=== PATIENT | female | born 1985 | race Caucasian/White ===

== ENCOUNTER 2016-05-23 07:32 | Emergency (ER) | payer BC ==
[2016-05-23 08:03] VITALS: BP 109/81
[2016-05-23] MEDS ORDERED: Acetaminophen TAB* 325 MG PO ONE (08:08)
--- NOTE | 2016-05-23 10:14 | UC ---
FLU HPI - HPI Summary HPI Summary: 2 DAYS OF FEVER, BODY ACHES, COUGH AND CHILLS. ABOUT 10 WEEKS . TOOK TYLENOL LAST NIGHT. OB DR. MONTOYA. - History of Current Complaint Chief Complaint: UCRespiratory Stated Complaint: FEVER RESP ISSUE PREG Time Seen by Provider: 05/23/16 08:07 Hx Obtained From: Patient Hx Last Menstrual Period: 10 weeks Onset/Duration: Gradual Onset, Lasting Days, Still Present Severity Currently: Moderate Severity Initially: Moderate Pain Intensity: 0 Pain Scale Used: 0-10 Numeric Associated Signs & Symptoms: Positive: Fever, Myalgia, Cough. Negative: Sore Throat, Headache, Vomiting, Diarrhea - Allergy/Home Medications Allergies/Adverse Reactions: Allergies Allergy/AdvReac Type Severity Reaction Status Date / Time No Known Allergies Allergy Verified 05/23/16 08:03 Home Medications: Home Medications Levothyroxine TAB* [Synthroid TAB*] 50 mcg PO 05/23/16 [History] PMH/Surg Hx/FS Hx/Imm Hx Endocrine History Of: Reports: Thyroid Disease, Hypothyroidism - Surgical History Surgical History: None - Family History Known Family History: Negative: Blood Disorder - Social History Alcohol Use: None Substance Use Type: None Smoking Status (MU): Never Smoked Tobacco Review of Systems Constitutional: Fever, Chills, Fatigue Respiratory: Cough Cardiovascular: Negative Gastrointestinal: Negative Musculoskeletal: Myalgia Neurological: Headache All Other Systems Reviewed And Are Negative: Yes Physical Exam Triage Information Reviewed: Yes Appearance: No Pain Distress, Well-Nourished, Ill-Appearing - MOD Vital Signs: Initial Vital Signs Temp 99.9 F 05/23/16 07:58 Pulse 88 05/23/16 07:58 Resp 20 05/23/16 07:58 BP 109/81 05/23/16 07:58 Pulse Ox 100 05/23/16 07:58 Vital Signs Reviewed: Yes Eyes: Positive: Conjunctiva Clear ENT: Positive: Hearing grossly normal, Pharynx normal, TMs normal Neck: Positive: Supple, Nontender, No Lymphadenopathy Respiratory Exam: Normal Cardiovascular Exam: Normal Abdomen Description: Positive: Soft Musculoskeletal: Positive: No Edema Neurological: Positive: Alert, Fatigued Psychological: Positive: Age Appropriate Behavior Skin: Negative: rashes Diagnostics - Laboratory Diagnostic Studies Completed/Ordered: FLU B POSITIVE Flu Course/Dx - Differential Dx/Diagnosis Provider Diagnoses: INFLUENZA B Discharge - Discharge Plan Condition: Stable Disposition: HOME Prescriptions: Oseltamivir Phosphate [Tamiflu] 75 mg PO BID #10 cap Patient Education Materials: Influenza (ED) Referrals: Edgardo Montoya MD [Medical Doctor] - (RESCHEDULE INITIAL APPT) Additional Instructions: INFLUENZA B. REST, HYDRATE, TYLENOL NEEDED FOR FEVER AND ACHES. NO NSAIDS IN .
== END 2016-05-23 09:00 | disposition home or self-care (01) ==
LOC: UCEAST 07:32
DX: O26.891 Other specified pregnancy related conditions, first trimester (principal); J11.1 Influenza due to unidentified influenza virus with other respiratory manifestations; Z3A.10 10 weeks gestation of pregnancy; E03.9 Hypothyroidism, unspecified
CPT/HCPCS: 87502; 99202; A9270-GY; G0463